=== PATIENT | female | born 1970 | race Caucasian/White ===

== ENCOUNTER 2021-06-04 17:40 | Outpatient (CLI) | payer OTHER ==
[2021-06-04 18:37] LABS: Hemoglobin 13.7 g/dL (12.0-15.5); Mean Corpuscular HGB CONC 34.5 g/dL (32.0-36.0); Mean Corpuscular Hemoglobin 30.6 pg (27.0-33.0); Mean Corpuscular Volume 88.8 fl (81.6-98.3); Mean Platelet Volume 10.2 fl (7.4-10.4); Platelet Count 276 10x3/uL (150-450); Red Blood Cell (RBC) Count 4.47 10x6/uL (3.90-5.03); White Blood Cell (WBC) Count 7.4 10x3/uL (3.5-10.5)
[2021-06-05 00:26] LABS: SARS-CoV-2 PCR by NAA Not Detected (NotDetected)
== END 2021-06-04 17:41 | disposition home or self-care (01) ==
LOC: LABBT 17:40
PROVIDERS: ATTEND Surgery
DX: Z01.812 Encounter for preprocedural laboratory examination (principal); K42.9 Umbilical hernia without obstruction or gangrene; Z20.822 Contact with and (suspected) exposure to COVID-19
CPT/HCPCS: 85027; 93005; 93010; U0003; U0005

== ENCOUNTER 2021-06-07 10:26 | Day surgery (SDC) | payer OTHER ==
[2021-06-05 14:14] VITALS: BMI 25.9
[2021-06-07] MEDS ORDERED: Lidocaine 1% w/Epinephrine 1:100K 20 ML VIAL ONE (10:57)
[2021-06-07] MEDS ORDERED: Bupivacaine 0.25% 10 ML VIAL ONE (10:57)
[2021-06-07] MEDS ORDERED: PROPOFOL 0 ML ONE (11:37)
[2021-06-07] MEDS ORDERED: fentaNYL Citrate/PF 100 MCG/2 ML SYRINGE ONE (11:37)
[2021-06-07] MEDS ORDERED: ceFAZolin (BATCH) 2 GM/100 ML BAG ONE (11:52)
[2021-06-07] MEDS ORDERED: Midazolam HCl 2 mg/2 ml Vial ONE (11:52)
[2021-06-07] MEDS ORDERED: Ketorolac Tromethamine 30 MG/ML VIAL ONE (12:03)
[2021-06-07] MEDS ORDERED: Ondansetron PF 4 MG/2 ML Vial ONE (12:03)
[2021-06-07] MEDS ORDERED: PROPOFOL 200 MG/20 ML VIAL ONE (12:03)
[2021-06-07] MEDS ORDERED: Dexamethasone 20 MG/5 ML VIAL ONE (12:03)
[2021-06-07] MEDS ORDERED: Lidocaine 1% PF 5 ML VIAL ONE (12:03)
[2021-06-07] MEDS ORDERED: HYDROcodone/Acetaminophen 5/325 mg Tablet ONE (14:26)
== END 2021-06-07 15:00 | disposition home or self-care (01) ==
LOC: SDC 10:26
PROVIDERS: ATTEND Surgery
PROC: 0WUF0JZ Supplement Abdominal Wall with Synthetic Substitute, Open Approach (ICD-10-PCS; principal; 2021-06-07)
DX: K42.9 Umbilical hernia without obstruction or gangrene (principal); G47.00 Insomnia, unspecified; K21.9 Gastro-esophageal reflux disease without esophagitis; Z79.82 Long term (current) use of aspirin; Z79.899 Other long term (current) drug therapy
CPT/HCPCS: C1889; J0690; J1100; J1885; J2250; J2405; J2704; S0020

== ENCOUNTER 2022-05-09 14:02 | Day surgery (SDC) | payer OTHER ==
[2022-05-09] MEDS ORDERED: Lidocaine 1% PF 5 ML VIAL ONE (14:52)
[2022-05-09] MEDS ORDERED: PROPOFOL 200 MG/20 ML VIAL ONE (14:52)
[2022-05-09] MEDS ORDERED: Midazolam HCl 2 mg/2 ml Vial ONE (15:00)
== END 2022-05-09 16:22 | disposition home or self-care (01) ==
LOC: SDC 14:02
PROVIDERS: ATTEND Internal Medicine
PROC: 0DB68ZX Excision of Stomach, Via Natural or Artificial Opening Endoscopic, Diagnostic (ICD-10-PCS; principal; 2022-05-09)
PROC: 0D758ZZ Dilation of Esophagus, Via Natural or Artificial Opening Endoscopic (ICD-10-PCS; principal; 2022-05-09)
PROC: 0DB18ZX Excision of Upper Esophagus, Via Natural or Artificial Opening Endoscopic, Diagnostic (ICD-10-PCS; principal; 2022-05-09)
PROC: 0DB38ZX Excision of Lower Esophagus, Via Natural or Artificial Opening Endoscopic, Diagnostic (ICD-10-PCS; principal; 2022-05-09)
DX: K22.2 Esophageal obstruction (principal); K21.00 Gastro-esophageal reflux disease with esophagitis, without bleeding; K31.9 Disease of stomach and duodenum, unspecified; J30.2 Other seasonal allergic rhinitis; Z79.899 Other long term (current) drug therapy
CPT/HCPCS: 88305; J2250; J2704